=== PATIENT | male | born 1950 | race Caucasian/White ===

== ENCOUNTER 2018-07-22 05:01 | Observation (INO) | payer OTHER ==
[2018-07-22] MEDS ORDERED: ceFAZolin 2 GM/DEXTROSE 100 ML IV ONE (05:39)
[2018-07-22] MEDS ORDERED: GABAPENTIN 300 MG CAP PO ONE (05:39)
[2018-07-22] MEDS ORDERED: ACETAMINOPHEN 500 MG TAB PO ONE (05:39)
[2018-07-22] MEDS ORDERED: LR 1,000 ML IV ONE (05:41)
[2018-07-22] MEDS ORDERED: CHLORHEXIDINE GLUC HIBICLENS 118 ML BTL TP ONE (06:47)
[2018-07-22] MEDS ORDERED: SURGIFLO MATRIX KIT WITH THROMBIN 8 ML TP ONE (06:47)
[2018-07-22] MEDS ORDERED: BACITRACIN 50,000 UNITS/10 ML SYR IRR ONE (06:47)
[2018-07-22] MEDS ORDERED: THROMBIN (BOVINE) 20,000 UNIT VIAL TP ONE (06:47)
--- NOTE | 2018-07-22 06:58 | PDANEPAE ---
ANE History of Present Illness Left arm pain ANE Past Medical History - Cardiovascular History Hx Hypertension: Yes Hx Arrhythmias: No Hx Chest Pain: No Hx Coronary Artery / Peripheral Vascular Disease: No Hx CHF / Valvular Disease: No Hx Palpitations: No - Pulmonary History Hx COPD: No Hx Asthma/Reactive Airway Disease: No Hx Recent Upper Respiratory Infection: No Hx Oxygen in Use at Home: No Hx Sleep Apnea: No Sleep Apnea Screening Result - Last Documented: Positive - Neurologic History Hx Cerebrovascular Accident: No Hx Seizures: No Hx Dementia: No - Endocrine History Hx Diabetes: No Endocrine History Comment: HYPOTHYROID - Renal History Hx Renal Disorders: Yes Renal History Comment: HX OF KIDNEY STONES - Liver History Hx Hepatic Disorders: No - Neurological & Psychiatric Hx Hx Neurological and Psychiatric Disorders: No - Cancer History Hx Cancer: No - Congenital Disorder History Hx Congenital Disorders: Yes Congenital History Comment: SKIN - GI History Hx Gastrointestinal Disorders: No - Other Health History Other Health History: N/T ARMS AND HANDS. CERVICALGIA - Chronic Pain History Chronic Pain: Yes (AVE ARM/HANDS N /T) - Surgical History Prior Surgeries: LITHOTRIPSY 2007. LT SHLDR SCOPE. RT KNEE SURG ANE Review of Systems Review of Systems: - Exercise capacity METS (RN): 4 METS ANE Patient History - Allergies Allergies/Adverse Reactions: Sulfa (Sulfonamide Antibiotics) Allergy (Verified 07/08/18 08:16) Hives - Home Medications Home medications: home medication list seen and reviewed Home Medications: Ezetimibe [Zetia 10 MG (*)] 10 mg PO DAILY 07/08/18 [Last Taken 07/21/18] Gabapentin [Neurontin 300 MG (*)] 300 mg PO HS 07/08/18 [Last Taken 07/21/18] Gemfibrozil [Lopid 600 MG (*)] 600 mg PO DAILY 07/08/18 [Last Taken 07/21/18] Herbals/Supplements -Info Only 1 ea PO DAILY 07/08/18 [Last Taken 07/15/18] Levothyroxine [Synthroid 100 mcg (*)] 100 mcg PO DAILY06 07/08/18 [Last Taken ] Losartan Potassium 100 mg PO DAILY 07/08/18 [Last Taken 07/21/18] celeCOXIB [Celecoxib] 200 mg PO BID PRN 07/08/18 [Last Taken 06/22/18] - NPO status NPO Status: no food or drink >8 hours NPO Since - Liquids (Date): 07/22/18 NPO Since - Liquids (Time): 00:00 NPO Since - Solids (Date): 07/21/18 NPO Since - Solids (Time): 19:00 - Anes Hx Anes Hx: no prior problems (Slow waker) - Smoking Hx Smoking Status: Former smoker ANE Labs/Vital Signs - Vital Signs Blood Pressure: 145/100 Heart Rate: 75 Respiratory Rate: 18 O2 Sat (%): 92 Height: 177.8 cm Weight: 103.419 kg ANE Physical Exam - Airway Neck exam: FROM Mallampati Score: Class 2 Mouth exam: normal dental/mouth exam - Pulmonary Pulmonary: no respiratory distress - Cardiovascular Cardiovascular: regular rate and rhythym - ASA Status ASA Status: II ANE Anesthesia Plan Anesthesia Plan: general endotracheal anesthesia
--- NOTE | 2018-07-22 06:59 | PDHPUP ---
History & Physical Update H&P update statement: This history and physical update is based on an assessment of the patient which was completed after admission or registration (within 24 hours), but prior to the surgery/procedure. H&P update: H&P reviewed & patient examined, no change in patient's condition since H&P completed (Consensts signed and site marked. All questions answered.)
[2018-07-22] MEDS ORDERED: MIDAZOLAM 2 MG/2 ML VIAL IVP ONE (07:02)
[2018-07-22] MEDS ORDERED: PROPOFOL/EMULSION 500 MG/50 ML BOTTLE IV ONE (07:10)
[2018-07-22] MEDS ORDERED: fentaNYL 100 MCG/2 ML INJ ONE ×4 (07:10→10:38)
[2018-07-22] MEDS ORDERED: PROPOFOL 200 MG/20 ML VIAL ONE (07:10)
[2018-07-22] MEDS ORDERED: REMIFENTANIL HCL 1 MG VIAL ONE (07:10)
[2018-07-22] MEDS ORDERED: LIDOCAINE 2% 2 ML INJ ONE (07:13)
[2018-07-22] MEDS ORDERED: ROCURONIUM 50 MG/5 ML VIAL ONE (07:14)
[2018-07-22] MEDS ORDERED: BACITRACIN ZINC 14.2 GM OINTTUBE TP ONE (07:36)
[2018-07-22] MEDS ORDERED: DEXAMETHASONE 4 MG/ML VIAL ONE (07:45)
[2018-07-22] MEDS ORDERED: PHENYLEPHRINE HCL 100 MCG/ML SYR ONE (07:46)
[2018-07-22] MEDS ORDERED: BUPIVACAINE 0.5% 30 ML SDV ONE (08:09)
[2018-07-22] MEDS ORDERED: ONDANSETRON 4 MG/2 ML VIAL ONE (09:00)
[2018-07-22] MEDS ORDERED: NALOXONE HCL 0.4 MG/ML INJ IVP PRN ×2 (09:01→09:23)
[2018-07-22] MEDS ORDERED: ONDANSETRON 4 MG/2 ML VIAL IVP PRN ×2 (09:01→09:28)
[2018-07-22] MEDS ORDERED: HYDROmorphONE/DILAUDID 1 MG/ML INJ ONE (09:22)
[2018-07-22] MEDS ORDERED: LABETALOL HCL 5 MG/ML 20 ML MDV ONE (09:23)
--- NOTE | 2018-07-22 09:24 | POSTANESTH ---
Post Anesthetic Evaluation Cardiovascular Status: Similar to Pre-Op Cond, Tx Hyper/Hypo-tension Respiratory Status: Similar to Pre-op Cond. Level of Consciousness/Mental Status: Can Participate in Eval Pain Control: Adequate, Prn Tx Ordered Nausea/Vomiting Control: Adequate, Prn Tx Ordered Complications Possibly Related to Anesthesia: None Noted
[2018-07-22] MEDS: fentaNYL 100 MCG/2 ML INJ IVP PRN ×2 (09:26→10:40)
[2018-07-22] MEDS ORDERED: BISACODYL 10 MG SUPP PR PRN (09:28)
[2018-07-22] MEDS ORDERED: MAGNESIUM HYDROXIDE 30 ML UDCUP PO PRN (09:28)
[2018-07-22] MEDS ORDERED: LACTULOSE 20 GM/30 ML UDCUP PO PRN (09:28)
[2018-07-22] MEDS ORDERED: diphenhydrAMINE 25 MG CAP PO PRN (09:28)
[2018-07-22] MEDS ORDERED: ONDANSETRON DISINTEGRATING 4 MG TAB PO PRN (09:28)
[2018-07-22] MEDS ORDERED: POLYETHYLENE GLYCOL 3350 17 GM PKT PO PRN (09:28)
[2018-07-22] MEDS: HYDROmorphONE/DILAUDID 2 MG/ML INJ IVP PRN ×3 (09:30→09:54)
[2018-07-22] MEDS ORDERED: NS 1,000 ML IV SCH (09:30)
[2018-07-22] MEDS: LABETALOL HCL 5 MG/ML 20 ML MDV IVP PRN ×3 (09:38→10:15)
--- NOTE | 2018-07-22 09:38 | POSTOPPROG ---
Post Op Note Date of Operation: 07/22/18 Surgeon: Panfilo Saldaña Eviction Specialist: SCOTT Vazquez PAC Anesthesia: GET(General Endotracheal) Pre-op Diagnosis: cervical stenosis Post-op Diagnosis: Cervical stenosis Indication: failure of medical management, cervical stenosis Procedure: ACDF C6/7 Inf/Abcess present in the surg proc area at time of surgery?: No EBL: Minimal PA Addendum - Addendum .: S: Resting comfortable, denies pain O: NAD A&Ox3 Following commands BLE 5/5 TAPIA X4 Incision c/d/i A/P 67M s/p ACDF C6/7 -Advance diet as tolerated -Post op xrays pending -Optimize pain management -DVT prophx: TEDs, SCDs, Lovenox okay POD3 -Please notify NS with any change in neuro/motor exam
--- NOTE | 2018-07-22 10:00 | GOP ---
DATE OF OPERATION: 07/22/2018 SURGEON: Panfilo Saldaña MD PLAYER DEVELOPMENT MANAGER: Clarita Vazquez, SEVERIANO. ANESTHESIA: General. PREOPERATIVE DIAGNOSIS: 1. C4-C7 cervical spondylosis. 2. C6-C7 radiculopathy. 3. Treatment refractory to nonoperative intervention. POSTOPERATIVE DIAGNOSIS: 1. C4-C7 cervical spondylosis. 2. C6-C7 radiculopathy. 3. Treatment refractory to nonoperative intervention. PROCEDURE PERFORMED: 1. Anterior arthrodesis with approach to C6-C7. 2. C6-C7 diskectomy with bilateral foraminotomies, osteophytectomies, and interbody fusion using an 8 x 16 x 14 mm titanium coated PEEK cage filled with morselized autograft and allograft. 3. Anterior cervical fusion C6-C7 with a 19 mm Medtronic Zevo plate. 4. Use of intraoperative fluoroscopy, less than 1 hour physician time. 5. Use of neuromonitoring. 6. Use of operating microscope. FINDINGS: per imaging SPECIMENS: None. ESTIMATED BLOOD LOSS: 30 mL. INDICATIONS: The patient is a 67-year-old who presented to my office with ongoing neck pain, bilateral upper extremity radiculopathy. He had evidence of cervical spondylosis diffusely, but imaging and targeted injections localized his pain to the C6-C7 level. After discussion of the risks, benefits, and treatment alternatives, and after failing nonoperative intervention, we decided to proceed forth with surgery as described above. DESCRIPTION OF PROCEDURE: The patient was brought to the operating theater and underwent general endotracheal anesthesia without complications. He had Venodynes, WICHO hose, and the appropriate lines placed by Anesthesia. His head was maintained supine on the operating table. Using lateral fluoroscopy and a spinal needle, we picked our entry point to the C6-C7 level. This was marked as a transverse incision on the right side of his neck. This area was prepped and draped in usual sterile surgical fashion. A time-out was completed per protocol. The patient received antibiotics within 1 hour of incision. The incision was taken down initially with the scalpel blade and then using monopolar taken down through subcutaneous tissues to the level of the platysma. The platysma was over-mined in the cranial and caudal direction. A Weitlaner was placed to maintain our exposure. We opened the fibers of the platysma cranially and caudally. Using both blunt and sharp dissection, we traveled in a plane medial to the carotid sheath and lateral to the esophagus and trachea to reach the prevertebral fascia. He had large anterior osteophytes on the C6- C7 levels, which were resected with the Le[place]ell rongeur. We confirmed our level using lateral fluoroscopy. We elevated the longus coli muscle from the anterior vertebral bodies of C6-C7 and a deep retractor was placed to maintain our exposure. We placed a [place] pin into the vertebral body of C6 and C7 and placed C6-C7 into mild distraction. The microscope was brought into field to assist with microscopic dissection and maintain illumination and magnification. Using a combination of the bur tip, curette, and Kerrison punches, we completed a C6-C7 diskectomy with bilateral foraminotomies and osteophytectomies. We prepared the cartilaginous endplates and measured the interbody space. We placed an 8 x 16 x 14 mm titanium coated PEEK cage filled with morselized autograft and allograft into the C6-7 disk space. We removed the [place] pins and drilled down the anterior osteophytes and secured a 19 mm Medtronic Zevo plate onto the vertebral bodies of C6 and C7. AP and lateral x-rays demonstrated good placement of the hardware. The wound was irrigated with copious bacitracin irrigation. We closed the wound in multiple layers using Vicryl sutures for deep layers and Dermabond for skin. Patient's wound was dressed sterilely. He was then awakened, extubated, and taken to the recovery room in stable condition. There were no complications and no noted changes on neuromonitoring throughout the procedure. The use of the PA was critical to the procedure in retracting and protecting the tissues in this case. COMPLICATIONS: None. /[id number]/MODL MTDD
[2018-07-22] MEDS ORDERED: oxyCODONE IR 5 MG TAB ONE (10:44)
[2018-07-22] MEDS: oxyCODONE IR 5 MG TAB PO PRN ×3 (10:47→19:08)
[2018-07-22] MEDS: CYCLOBENZAPRINE 10 MG TAB PO SCH ×2 (14:34→21:45)
[2018-07-22] MEDS: ACETAMINOPHEN 500 MG TAB PO SCH ×2 (14:35→21:46)
[2018-07-22] MEDS: ceFAZolin 2 GM/DEXTROSE 100 ML IV SCH ×2 (15:22→23:10)
[2018-07-22] MEDS ORDERED: GABAPENTIN 300 MG CAP PO SCH (21:00)
[2018-07-22] MEDS: SENNOSIDES/DOCUSATE SODIUM TAB PO SCH (21:46)
[2018-07-22] MEDS: FAMOTIDINE 20 MG TAB PO SCH (21:46)
[2018-07-23] MEDS ORDERED: LEVOTHYROXINE 100 MCG TAB PO SCH (06:00)
[2018-07-23] MEDS: ACETAMINOPHEN 500 MG TAB PO SCH ×2 (06:40→08:06)
--- NOTE | 2018-07-23 07:51 | NEUSURGPN ---
Date of Surgery: 07/22/18 Post Op Day: 1 Assessment/Plan: Assessment: 67M s/p ACDF C6/7 POD#1 Plan: -Advance diet as tolerated -Post op xrays show stable hardware placement -Optimize pain management, currently well controlled with oral medications. Pre operative shoulder pain improved, patient has expected trap pain -Ok to discharge home today, patient is scheduled to follow up for a post op visit in 2 weeks -Patient discussed with Dr Saldaña as well -Please call neurosurgery with any questions/concerns Subjective: Doing well this am, denies any issues Objective: AxO x3 BUE, BLE 5/5 Dressing CDI No collar Neuro Check Frequency: per routine Urinary Catheter in Place: No - Physician Discussed Patient with : Piot[facility] Neurosurgery Physical Exam - Vitals, I&O, Labs I and O 07/22/18 07/23/18 07/24/18 05:59 05:59 05:59 Intake Total 2130 Output Total 2760 Balance -630 Weight 103.419 kg Intake: Oral (ml) 1000 IV Infused (ml) 1130 Ns 1,000 ml @ 75 mls/hr 1030 IV CONT ERIKA Rx#: [id number] ceFAZolin 2 GM/DEXTROSE 100 100 ml @ 200 mls/hr IV Q8H ERIKA Rx#:[id number] Output: Urine (ml) 2760 Toilet 450 Urinal 2310 Other: Intake Quantity Yes Sufficient Number of Voids Toilet 1 Urinal 1 Vital Signs Temp Pulse Resp BP Pulse Ox 36.8 C 75 17 118/74 95 07/23/18 04:00 07/23/18 04:00 07/23/18 04:00 07/23/18 04:00 07/23/18 04:00 ICD10 Worksheet Patient Problems: Problems Problem Status Onset Cervical stenosis of spine Acute - ICD10 Problem Qualifiers (1) Cervical stenosis of spine
[2018-07-23] MEDS: SENNOSIDES/DOCUSATE SODIUM TAB PO SCH (08:05)
[2018-07-23] MEDS: FAMOTIDINE 20 MG TAB PO SCH (08:06)
[2018-07-23] MEDS: CYCLOBENZAPRINE 10 MG TAB PO SCH (08:06)
[2018-07-23] MEDS: oxyCODONE IR 5 MG TAB PO PRN (08:10)
[2018-07-23] MEDS ORDERED: EZETIMIBE 10 MG TAB PO SCH (09:00)
[2018-07-23] MEDS ORDERED: Herbals/Supplements -Info Only PO SCH (09:00)
[2018-07-23] MEDS ORDERED: LOSARTAN POTASSIUM 50 MG TAB PO SCH (09:00)
[2018-07-23] MEDS ORDERED: GEMFIBROZIL 600 MG TAB PO SCH (09:00)
[2018-07-23 11:46] VITALS: BP 130/72
[2018-07-25] MEDS ORDERED: ENOXAPARIN 40 MG/0.4 ML SYR SC SCH (09:00)
== END 2018-07-23 12:45 | disposition home or self-care (01) ==
LOC: F3N 05:01
PROVIDERS: ADMIT Neurological Surgery; ATTEND Neurological Surgery
PROC: 0RT30ZZ Resection of Cervical Vertebral Disc, Open Approach (ICD-10-PCS; principal; 2018-07-22 07:15)
PROC: 0RG00A0 Fusion of Occipital-cervical Joint with Interbody Fusion Device, Anterior Approach, Anterior Column, Open Approach (ICD-10-PCS; principal; 2018-07-22 07:15)
DX: M50.123 Cervical disc disorder at C6-C7 level with radiculopathy (principal); M47.22 Other spondylosis with radiculopathy, cervical region; Z23 Encounter for immunization
CPT/HCPCS: 22551; 72040; 76001; 90471; 92610; 97161; 97166; G8978; G8979; G8980; G8987; G8988; G8989; G8996; G8997; C1713; G0008; J0690; J1100; J1170; J2250; J2370; J2405; J2704; J3010